=== PATIENT | male | born 1970 | race Caucasian/White ===

== ENCOUNTER → 2017-08-08 | Outpatient (CLI) | payer OTHER, MEDICARE ==
[~2017-08-08] MED LIST: CIPR-184 PO; DIVA250T6 PO; GADOBUTROL 7.5 MMOL/7.5 ML PFS ONE; LAMO150T PO; METR500T PO; OXYC1TAB8 PO; SIMV20TA3 PO
== END | disposition home or self-care (01) ==
LOC: CFH 13:05
PROVIDERS: ATTEND Registered Nurse
DX: C71.2 Malignant neoplasm of temporal lobe (principal); R90.82 White matter disease, unspecified; Z98.890 Other specified postprocedural states
CPT/HCPCS: 70553; A9585

== ENCOUNTER → 2018-10-22 | Outpatient (CLI) | payer OTHER, MEDICARE ==
[~2018-10-22] MED LIST changes: +DIVA-59 PO; -DIVA250T6 PO; -LAMO150T PO; +LAMO150T2 PO
== END | disposition home or self-care (01) ==
LOC: CFH 14:32
PROVIDERS: ATTEND Registered Nurse
DX: C71.2 Malignant neoplasm of temporal lobe (principal); G31.9 Degenerative disease of nervous system, unspecified
CPT/HCPCS: 70553; A9585

== ENCOUNTER → 2018-11-26 | Outpatient (CLI) | payer OTHER, MEDICARE ==
[~2018-11-26] MED LIST changes: -GADOBUTROL 7.5 MMOL/7.5 ML PFS ONE
== END | disposition home or self-care (01) ==
LOC: CFH 07:11
PROVIDERS: ATTEND Family Medicine
DX: N50.811 Right testicular pain (principal)
CPT/HCPCS: 76870

== ENCOUNTER → 2019-03-25 | Outpatient (CLI) | payer OTHER, MEDICARE | END | disposition home or self-care (01) | LOC: RAD 12:38 | PROVIDERS: ATTEND Internal Medicine Gastroenterology | DX: R13.10 Dysphagia, unspecified (principal); R05 Cough; R68.2 Dry mouth, unspecified; R68.89 Other general symptoms and signs | CPT/HCPCS: 74220 ==

== ENCOUNTER 2019-10-28 10:25 | Emergency (ER) | payer OTHER, MEDICARE ==
[~2019-10-28] VITALS: Ht 182.9 cm; Wt 82.0 kg
[~2019-10-28 10:25] MED LIST changes: -LAMO150T2 PO; +LAMO150T4 PO; +SIMV20TA19 PO; -SIMV20TA3 PO
--- NOTE | 2019-10-28 11:06 | NUR ---
ERP AT BEDSIDE. PT DENIES ANY FURTHER NEEDS AT THIS TIME, CALL LIGHT IN REACH.
[2019-10-28] MEDS ORDERED: L.E.T SOLUTION TP ONE ×2 (11:22→11:30)
[2019-10-28] MEDS ORDERED: SODIUM CHLORIDE FLUSH 10ML SYR IVF ONE (11:30)
[2019-10-28] MEDS ORDERED: ONDANSETRON 2MG/ML, 2ML ONE ×2 (11:52→14:55)
[2019-10-28] MEDS ORDERED: ONDANSETRON 2MG/ML, 2ML IVPush ONE ×2 (12:00→15:00)
[2019-10-28 12:04] LABS: BASOPHILS # (AUTO) 0.03 x10^3/uL (0-0.1); BASOPHILS % (AUTO) 0 % (0-1); EOSINOPHILS % (AUTO) 2 % (1-7); LYMPHOCYTES # (AUTO) 2.62 x10^3/uL (1-3.4); LYMPHOCYTES % (AUTO) 28 % (22-44); MD NO; MEAN CORPUSCULAR HEMOGLOBIN 29.9 pg (27.5-34.5); MEAN CORPUSCULAR HGB CONC 33.2 g/dL (33.2-36.2); MEAN CORPUSCULAR VOLUME 90.1 fL (81-97); MEAN PLATELET VOLUME 7.6 fL (7.4-10.4); MONOCYTES # (AUTO) 0.45 x10^3/uL (0.2-0.8); MONOCYTES % (AUTO) 5 % (2-9); NEUTROPHILS # (AUTO) 5.96 x10^3/uL (1.8-6.8); NEUTROPHILS % (AUTO) 64 % (42-75); PLATELET COUNT 241 x10^3/uL (130-400); RED CELL DISTRIBUTION WIDTH 14.1 % (9.4-14.8)
[2019-10-28 12:10] LABS: ALANINE AMINOTRANSFERASE 14 U/L (12-78); ANION GAP 8 mmol/L (5-15); CALCIUM 9.3 mg/dL (8.5-10.1); CHLORIDE 101 mmol/L (98-107); CREATININE 1.02 mg/dL (0.7-1.3)
[2019-10-28 12:13] LABS: ALKALINE PHOSPHATASE 43 U/L (45-117); BILIRUBIN,TOTAL 0.3 mg/dL (0.2-1.0); TOTAL PROTEIN 7.9 g/dL (6.4-8.2)
[2019-10-28] MEDS ORDERED: GADOTERATE 10 MMOL/20 ML SYR ONE (12:33)
--- NOTE | 2019-10-28 12:35 | NUR ---
PT RETURNED FROM MRI AT THIS TIME. AT BEDSIDE. PT AND DENY ANY CURRENT NEEDS OR CONCERNS. CALL LIGHT IN REACH.
[2019-10-28 14:29] VITALS: BP 107/81
[2019-10-28 14:35] LABS: MICROSCOPIC NOT IND
== END 2019-10-28 15:07 | disposition home or self-care (01) ==
LOC: ED 14:47
DX: R42 Dizziness and giddiness (principal); R11.2 Nausea with vomiting, unspecified; E78.5 Hyperlipidemia, unspecified; H53.2 Diplopia
CPT/HCPCS: 36415; 70553; 80053; 80164; 81003; 83735; 85025; 93005; 96374; 96376; 99284; A9575; J2405

== ENCOUNTER → 2019-11-29 | Outpatient (CLI) | payer OTHER, MEDICARE | END | disposition home or self-care (01) | LOC: CARD 12:36 | PROVIDERS: ATTEND Registered Nurse | DX: R56.9 Unspecified convulsions (principal) | CPT/HCPCS: 95819 ==

== ENCOUNTER 2019-12-26 13:49 | Emergency (ER) | payer OTHER, MEDICARE ==
[~2019-12-26] VITALS: Ht 182.9 cm; Wt 78.0 kg
--- NOTE | 2019-12-26 14:45 | NUR ---
REPORT RECEIVED FROM YENIFER KIRBY. ASSUMED CARE
[2019-12-26 15:46] LABS: MICROSCOPIC AUTO
--- NOTE | 2019-12-26 15:49 | NUR ---
PT IN CT AT THIS TIME
[2019-12-26 15:52] LABS: ALBUMIN 4.3 g/dL (3.4-5.0); ANION GAP 8 mmol/L (5-15); CALCIUM 9.8 mg/dL (8.5-10.1); CHLORIDE 99 mmol/L (98-107)
[2019-12-26 15:53] LABS: CULTURE INDICATED? YES
[2019-12-26 15:56] LABS: ALANINE AMINOTRANSFERASE 30 U/L (12-78); ALKALINE PHOSPHATASE 68 U/L (45-117); BILIRUBIN,TOTAL 0.7 mg/dL (0.2-1.0)
--- NOTE | 2019-12-26 15:57 | NUR ---
PT RESTING IN [facility]. BEDSIDE. VSS. NAD. NO NEEDS AT THIS TIME
[2019-12-26 16:02] LABS: BASOPHILS # (AUTO) 0.06 x10^3/uL (0-0.1); BASOPHILS % (AUTO) 1 % (0-1); EOSINOPHILS # (AUTO) 0.15 x10^3/uL (0-0.4); EOSINOPHILS % (AUTO) 3 % (1-7); LYMPHOCYTES # (AUTO) 2.87 x10^3/uL (1-3.4); LYMPHOCYTES % (AUTO) 47 % (22-44); MD NO; MEAN CORPUSCULAR HEMOGLOBIN 29.9 pg (27.5-34.5); MEAN CORPUSCULAR HGB CONC 33.4 g/dL (33.2-36.2); MEAN CORPUSCULAR VOLUME 89.7 fL (81-97); MEAN PLATELET VOLUME 7.8 fL (7.4-10.4); MONOCYTES % (AUTO) 7 % (2-9); NEUTROPHILS % (AUTO) 43 % (42-75); PLATELET COUNT 253 x10^3/uL (130-400); RED CELL DISTRIBUTION WIDTH 14.6 % (9.4-14.8)
[2019-12-26] MEDS ORDERED: LIDOCAINE-MPF 1%, 5ML ONE (16:41)
[2019-12-26] MEDS ORDERED: CEFTRIAXONE 1,000 MG ONE (16:41)
[2019-12-26] MEDS ORDERED: CEFTRIAXONE 1,000 MG IM ONE (17:00)
--- NOTE | 2019-12-26 17:22 | NUR ---
BREAK RN: PT IS A&O X4, PT IS ABLE TO SAFELY AMBULATE AROUND ROOM. PT REPORTS HE IS READY FOR DC. VS STABLE. PT DISCHARGED.
[2019-12-26 17:23] VITALS: BP 129/92
== END 2019-12-26 17:32 | disposition home or self-care (01) ==
LOC: ED 17:00
DX: N30.00 Acute cystitis without hematuria (principal); G40.909 Epilepsy, unspecified, not intractable, without status epilepticus; E78.5 Hyperlipidemia, unspecified; R42 Dizziness and giddiness; R10.9 Unspecified abdominal pain; R51 Headache
CPT/HCPCS: 36415; 70450; 80053; 81001; 85025; 87086; 93005; 96372; 99285; J0696

== ENCOUNTER 2020-03-11 15:12 | Inpatient (IN) | payer OTHER, MEDICARE ==
[~2020-03-11] VITALS: Ht 182.9 cm; Wt 78.7 kg
[2020-03-11] MEDS ORDERED: FAMOTIDINE 20 MG/2 ML ONE (15:58)
[2020-03-11] MEDS ORDERED: ONDANSETRON 2MG/ML, 2ML ONE (15:58)
[2020-03-11] MEDS ORDERED: ONDANSETRON 2MG/ML, 2ML IVPush ONE (16:00)
[2020-03-11] MEDS ORDERED: SODIUM CHLORIDE 0.9% 1,000ML IVBOLUS ONE (16:00)
[2020-03-11] MEDS ORDERED: FAMOTIDINE 20 MG/2 ML IV ONE (16:00)
--- NOTE | 2020-03-11 16:05 | NUR ---
KRYSTYNA JETT AWARE OF NA OF 120. PT IS RECIEVING A BOLUS OF NS. NO FURTHER ORDERS RECEIVED AT THIS TIME.
[2020-03-11 16:06] LABS: BASOPHILS # (AUTO) 0.05 x10^3/uL (0-0.1); BASOPHILS % (AUTO) 1 % (0-1); EOSINOPHILS # (AUTO) 0.13 x10^3/uL (0-0.4); EOSINOPHILS % (AUTO) 3 % (1-7); LYMPHOCYTES # (AUTO) 1.19 x10^3/uL (1-3.4); LYMPHOCYTES % (AUTO) 24 % (22-44); MD NO; MEAN CORPUSCULAR HEMOGLOBIN 29.6 pg (27.5-34.5); MEAN CORPUSCULAR HGB CONC 33.1 g/dL (33.2-36.2); MEAN CORPUSCULAR VOLUME 89.6 fL (81-97); MEAN PLATELET VOLUME 6.7 fL (7.4-10.4); MONOCYTES # (AUTO) 0.19 x10^3/uL (0.2-0.8); MONOCYTES % (AUTO) 4 % (2-9); NEUTROPHILS # (AUTO) 3.41 x10^3/uL (1.8-6.8); NEUTROPHILS % (AUTO) 69 % (42-75); PLATELET COUNT 277 x10^3/uL (130-400); RED BLOOD COUNT 4.82 x10^6/uL (4.38-5.82); RED CELL DISTRIBUTION WIDTH 13.3 % (9.4-14.8)
--- NOTE | 2020-03-11 16:11 | NUR ---
LUNCH RN: Pt resting in room, awaiting ct.
[2020-03-11 16:18] LABS: ALANINE AMINOTRANSFERASE 17 U/L (12-78); ALBUMIN 3.8 g/dL (3.4-5.0); ANION GAP 7 mmol/L (5-15); CALCIUM 9.3 mg/dL (8.5-10.1); CHLORIDE 91 mmol/L (98-107); CREATININE 0.96 mg/dL (0.7-1.3)
[2020-03-11 16:20] LABS: ALKALINE PHOSPHATASE 73 U/L (45-117); BILIRUBIN,TOTAL 0.6 mg/dL (0.2-1.0); TOTAL PROTEIN 8.2 g/dL (6.4-8.2)
[2020-03-11] MEDS ORDERED: OMNIPAQUE 350 MG/ML, 100ML BOTTLE ONE (17:03)
--- NOTE | 2020-03-11 17:04 | NUR ---
KRYSTYNA JETT AT BEDSIDE FOR RECHECK/EXPLANATION OF POC. PT AND AT BEDSIDE VERBALIZE UNDERSTANDING. PT AO X 4. SKIN PWD. RESP EVEN AND UNLABORED. CALL LIGHT WITHIN REACH. WILL CONT OT MONITO IL.T Addendum: 03/11/20 at 1705 by JPREMO KRYSTYNA JETT AT BEDSIDE FOR RECHECK/EXPLANATION OF POC. PT AND AT BEDSIDE VERBALIZE UNDERSTANDING. PT AO X 4. SKIN PWD. RESP EVEN AND UNLABORED. CALL LIGHT WITHIN REACH. WILL CONT OT MONITOR PT.
--- NOTE | 2020-03-11 18:15 | NUR ---
SOPHIE MOTA AT BEDSIDE FOR RECHECK/EXPLANATION OF RESULTS AND POC. PT AND VERBALIZE UNDERSTANDING. PT ON CONT BP AND O2 MONITORS. CALL LIGHT WITHIN REACH.
[2020-03-11] MEDS ORDERED: ESLI800T PO (18:16)
[2020-03-11] MEDS ORDERED: ATOR40TA PO (18:16)
--- NOTE | 2020-03-11 18:28 | NUR ---
ADMITTING JOHANNY GARCIA AT BEDSIDE FOR EVAL. PT AO X 4. SKIN PWD. RESP EVEN AND UNLABORED. NO ACUTE DISTRESS NOTED. CALL LIGHT WITHIN REACH. WILL CONT TO MONITOR PT.
[2020-03-11] MEDS ORDERED: SODIUM CHLORIDE 0.9% 1,000 ML IV SCH (18:30)
[2020-03-11] MEDS: NICOTINE 7 MG/24 HR PATCH.TD24 TD SCH (18:30)
--- NOTE | 2020-03-11 18:47 | NUR ---
REPORT TO YENIFER SOTO WHO ASSUMED CARE OF PT.
[2020-03-11] MEDS: BISACODYL 10 MG SUPP PR SCH (19:00)
--- NOTE | 2020-03-11 19:11 | NUR ---
POC RV'WD WITH PT AND , THEY VERBALIZE UNDERSTANDING. PT REQUESTING FOOD AT THIS TIME. EDUCATED HIM ON NPO STATUS. WILL NOTIFY HOSPITALIST. LEAVING FOR THE NIGHT. CALL LIGHT IN REACH OF PT, ALL NEEDS ADDRESSED.
--- NOTE | 2020-03-11 19:16 | NUR ---
BROTH PROVIDED TO PT PER ADMITTING DIRECTOR PUBLIC SERVICE.
--- NOTE | 2020-03-11 19:28 | NUR ---
PT TOLERATED BROTH WELL. MIVF INFUSING. PT REFUSED NICOTINE PATCH & DULCOLAX SUPPOSITORY. ASKING ABOUT PO STOOL SOFTENER AND OXYCODONE, STATES HE TAKES UP TO 6 OXYCODONE PER DAY. WILL NOTIFY GLADYS MCBRIDE.
[2020-03-11] MEDS ORDERED: OXYC-302 PO (19:51)
[2020-03-11] MEDS ORDERED: OXYcodone IR 5MG TABLET ONE (20:00)
[2020-03-11] MEDS: OXYcodone IR 5MG TABLET PO PRN (20:05)
--- NOTE | 2020-03-11 20:33 | NUR ---
PT AMBULATED TO WITHOUT DIFFICULTY. EXPERIMENTAL BOX TESTER TRANSPORTING PT UPSTAIRS NOW. Addendum: 03/11/20 at 2032 by HBENSON PT WAS MEDICATED WITH OXYCODONE FOR CHRONIC PAIN TO GROIN/TESTICLE AREA.
[2020-03-11] MEDS: LAMOTRIGINE 100 MG TABLET PO SCH (21:00)
[2020-03-11] MEDS ORDERED: ESLICARBAZEPINE ACETATE 800 MG PO SCH (21:00)
[2020-03-11] MEDS: DOCUSATE 100 MG CAPSULE PO SCH (21:29)
[2020-03-11] MEDS: ATORVASTATIN 40 MG TABLET PO SCH (21:29)
[2020-03-11] MEDS: SODIUM CHLORIDE 0.9% 1,000 ML IV SCH (21:31)
[2020-03-11 21:36] VITALS: BP 124/71
[2020-03-11] MEDS ORDERED: TEMAZEPAM 15 MG CAPSULE PO ONE (22:30)
[2020-03-11 23:49] VITALS: BP 113/78
[2020-03-12] MEDS: SODIUM CHLORIDE 0.9% 1,000 ML IV SCH (03:46)
[2020-03-12 05:00] LABS: BASOPHILS # (AUTO) 0.03 x10^3/uL (0-0.1); BASOPHILS % (AUTO) 1 % (0-1); EOSINOPHILS # (AUTO) 0.23 x10^3/uL (0-0.4); EOSINOPHILS % (AUTO) 4 % (1-7); LYMPHOCYTES % (AUTO) 36 % (22-44); MD NO; MEAN CORPUSCULAR HEMOGLOBIN 29.9 pg (27.5-34.5); MEAN CORPUSCULAR HGB CONC 33.1 g/dL (33.2-36.2); MEAN CORPUSCULAR VOLUME 90.3 fL (81-97); MEAN PLATELET VOLUME 6.8 fL (7.4-10.4); MONOCYTES # (AUTO) 0.37 x10^3/uL (0.2-0.8); MONOCYTES % (AUTO) 6 % (2-9); NEUTROPHILS # (AUTO) 3.25 x10^3/uL (1.8-6.8); NEUTROPHILS % (AUTO) 54 % (42-75); PLATELET COUNT 251 x10^3/uL (130-400); RED BLOOD COUNT 4.22 x10^6/uL (4.38-5.82)
[2020-03-12 05:01] LABS: ANION GAP 10 mmol/L (5-15); CHLORIDE 100 mmol/L (98-107); CREATININE 0.84 mg/dL (0.7-1.3)
[2020-03-12 08:50] VITALS: BP 124/88
[2020-03-12] MEDS: BISACODYL 10 MG SUPP PR SCH (09:00)
[2020-03-12] MEDS: LAMOTRIGINE 100 MG TABLET PO SCH ×2 (09:00→20:52)
[2020-03-12] MEDS: CYCLOBENZAPRINE 10 MG TABLET PO SCH ×2 (09:02→20:53)
[2020-03-12] MEDS: OXYcodone IR 5MG TABLET PO PRN ×3 (09:02→20:59)
[2020-03-12] MEDS: DOCUSATE 100 MG CAPSULE PO SCH ×2 (09:02→20:52)
[2020-03-12 10:40] LABS: MICROSCOPIC NOT IND
[2020-03-12 10:44] LABS: CHLORIDE,URINE RANDOM 74 mmol/L; POTASSIUM,URINE RANDOM 12 mmol/L; SODIUM,URINE RANDOM 62 mmol/L
[2020-03-12 14:13] VITALS: BP 130/86
[2020-03-12 19:35] VITALS: BP 123/80
[2020-03-12] MEDS ORDERED: SODIUM CHLORIDE 0.9% 1,000 ML IV SCH (20:38)
[2020-03-12] MEDS: ATORVASTATIN 40 MG TABLET PO SCH (20:52)
[2020-03-12] MEDS: NICOTINE 7 MG/24 HR PATCH.TD24 TD SCH (21:00)
[2020-03-12] MEDS: ESLICARBAZEPINE ACETATE 800 MG PO SCH (21:00)
[2020-03-12] MEDS: ONDANSETRON 2MG/ML, 2ML IVPush PRN (21:19)
[2020-03-12] MEDS ORDERED: TEMAZEPAM 15 MG CAPSULE PO ONE (23:00)
[2020-03-13 01:21] VITALS: BP 126/80
[2020-03-13 06:33] LABS: BASOPHILS # (AUTO) 0.03 x10^3/uL (0-0.1); BASOPHILS % (AUTO) 1 % (0-1); EOSINOPHILS # (AUTO) 0.25 x10^3/uL (0-0.4); EOSINOPHILS % (AUTO) 4 % (1-7); LYMPHOCYTES # (AUTO) 1.63 x10^3/uL (1-3.4); LYMPHOCYTES % (AUTO) 28 % (22-44); MD NO; MEAN CORPUSCULAR HEMOGLOBIN 29.5 pg (27.5-34.5); MEAN CORPUSCULAR HGB CONC 32.9 g/dL (33.2-36.2); MEAN CORPUSCULAR VOLUME 89.7 fL (81-97); MEAN PLATELET VOLUME 6.7 fL (7.4-10.4); MONOCYTES # (AUTO) 0.26 x10^3/uL (0.2-0.8); MONOCYTES % (AUTO) 4 % (2-9); NEUTROPHILS # (AUTO) 3.71 x10^3/uL (1.8-6.8); NEUTROPHILS % (AUTO) 63 % (42-75); PLATELET COUNT 230 x10^3/uL (130-400); RED BLOOD COUNT 4.39 x10^6/uL (4.38-5.82); RED CELL DISTRIBUTION WIDTH 13.9 % (9.4-14.8)
[2020-03-13 06:43] LABS: ANION GAP 7 mmol/L (5-15); CALCIUM 9.2 mg/dL (8.5-10.1); CHLORIDE 104 mmol/L (98-107); CREATININE 1.05 mg/dL (0.7-1.3)
[2020-03-13 07:11] VITALS: BP 124/77
[2020-03-13] MEDS: OXYcodone IR 5MG TABLET PO PRN (07:41)
[2020-03-13] MEDS: CYCLOBENZAPRINE 10 MG TABLET PO SCH (07:41)
[2020-03-13] MEDS: DOCUSATE 100 MG CAPSULE PO SCH (07:41)
[2020-03-13] MEDS: ONDANSETRON 2MG/ML, 2ML IVPush PRN (07:41)
[2020-03-13] MEDS: LAMOTRIGINE 100 MG TABLET PO SCH (07:42)
[2020-03-13] MEDS: BISACODYL 10 MG SUPP PR SCH (07:42)
[2020-03-13] MEDS: ESLICARBAZEPINE ACETATE 800 MG PO SCH (08:37)
[2020-03-13] MEDS ORDERED: ONDA4VIA60 IVPush (10:59)
[2020-03-13 13:16] VITALS: BP 126/82
== END 2020-03-13 14:08 | disposition home or self-care (01) | DRG 641 ==
LOC: ED 16:27 → EDIP 17:35 → 3N 20:59 → DCLOUNGE 03-13 14:03
PROVIDERS: ADMIT Internal Medicine; ATTEND Internal Medicine
DX: E86.0 Dehydration (principal); C71.9 Malignant neoplasm of brain, unspecified; E87.1 Hypo-osmolality and hyponatremia; E78.5 Hyperlipidemia, unspecified; F12.90 Cannabis use, unspecified, uncomplicated; F17.200 Nicotine dependence, unspecified, uncomplicated; G40.909 Epilepsy, unspecified, not intractable, without status epilepticus; G54.6 Phantom limb syndrome with pain; K59.00 Constipation, unspecified; Z80.41 Family history of malignant neoplasm of ovary; Z85.841 Personal history of malignant neoplasm of brain; Z88.8 Allergy status to other drugs, medicaments and biological substances; Z79.899 Other long term (current) drug therapy
CPT/HCPCS: 36415; 96374; 96375; 99285; J3490; 74177; 80048; 80053; 81003; 82436; 83690; 83735; 83930; 83935; 84133; 84295; 84300; 85025; 93005; G0378; J2405; Q9967; J7030

== ENCOUNTER 2021-05-10 10:12 | Outpatient (CLI) | payer OTHER, MEDICARE ==
[~2021-05-10 10:12] MED LIST changes: +ATOR40TA PO; +ESLI800T PO; +ONDA4VIA60 IVPush; +OXYC1TAB14 PO
== END 2021-05-10 23:59 | disposition home or self-care (01) ==
LOC: RAD 10:12
PROVIDERS: ATTEND Nurse Practitioner
DX: R13.10 Dysphagia, unspecified (principal)
CPT/HCPCS: 74230